=== PATIENT | female | born 1950 | race Caucasian/White ===

== ENCOUNTER 2023-11-10 04:57 | Emergency (ER) | payer MEDICARE, MEDICAID ==
[~2023-11-10] VITALS: Ht 162.6 cm; Wt 88.2 kg
[2023-11-10 05:37] VITALS: TEMP 97.7
--- NOTE | 2023-11-10 05:44 | NUR ---
MD RIDER CANCELLED EKG
[2023-11-10] MEDS: morphine 4 MG/ML inj SYRINge IV ONE (05:48)
[2023-11-10] MEDS: cyclobenzaprine 10mg tablet PO ONE (05:48)
[2023-11-10 05:50] LABS: BASOPHILS # (AUTO) 0.1 X10'3 (0-0.2); BASOPHILS % (AUTO) 0.6 % (0-1); EOSINOPHILS # (AUTO) 0.3 X10'3 (0-0.9); EOSINOPHILS % (AUTO) 2.2 % (0-6); HEMATOCRIT 35.7 % (35.0-45.0); HEMOGLOBIN 11.2 g/dl (12.0-16.0); LYMPHOCYTES # (AUTO) 3.5 X10'3 (1.1-4.8); LYMPHOCYTES % (AUTO) 30.6 % (21-51); MEAN CORPUSCULAR HEMOGLOBIN 19.2 PG (27.0-31.0); MEAN CORPUSCULAR HGB CONC 31.5 g/dL (33.0-36.5); MEAN CORPUSCULAR VOLUME 60.7 FL (78-98); MEAN PLATELET VOLUME 8.5 FL (7.4-10.4); MONOCYTES # (AUTO) 0.5 X10'3 (0-0.9); MONOCYTES % (AUTO) 4.5 % (2-12); NEUTROPHILS # (AUTO) 7.1 X10'3 (1.8-7.7); NEUTROPHILS % (AUTO) 62.1 % (42-75); PLATELET COUNT 348 X10'3 (140-440); RED BLOOD COUNT 5.87 X10'6 (4.20-5.60); RED CELL DISTRIBUTION WIDTH 15.8 % (11.5-14.5); WHITE BLOOD COUNT 11.5 X10'3 (4.5-11.0)
[2023-11-10] MEDS: losartan 50mg tablet PO SCH (05:51)
[2023-11-10 05:57] LABS: BILIRUBIN,URINE NEGATIVE (Neg); CLARITY,URINE CLEAR (Clear); COLOR,URINE YELLOW (Yellow); GLUCOSE, URINE NEGATIVE (Neg); KETONES,URINE NEGATIVE (Neg); LEUKOCYTE ESTERASE ,URINE NEGATIVE (Neg); NITRITES, URINE NEGATIVE (Neg); OCCULT BLOOD,URINE NEGATIVE (Neg); PROTEIN,URINE NEGATIVE (Neg); UROBILINOGEN,URINE 0.2 E.U/dL (0.2-1.0)
[2023-11-10 05:58] LABS: UA COLLECTION TYPE NON-SPECIFIED
[2023-11-10] MEDS ORDERED: HYDR-3965 PO (06:12)
[2023-11-10] MEDS ORDERED: CYCL-1 PO ×2 (06:12→09:05)
[2023-11-10 06:16] LABS: ALANINE AMINOTRANSFERASE 30 U/L (12-78); ALBUMIN 3.8 G/DL (3.4-5.0); ALBUMIN/GLOBULIN RATIO 0.9 (1.1-1.5); ALKALINE PHOSPHATASE 142 IU/L (46-116); AMYLASE 36 U/L (25-115); ANION GAP 14 (8-16); ASPARTATE AMINO TRANSFERASE 29 U/L (10-37); BILIRUBIN,TOTAL 1.2 MG/DL (0.1-1.0); BLOOD UREA NITROGEN 32 MG/DL (7-18); BUN/CREATININE RATIO 21.5 (10.0-20.0); CALCIUM 9.9 MG/DL (8.5-10.1); CHLORIDE 103 MMOL/L (99-107); CREATININE 1.49 MG/DL (0.40-0.90); GLUCOSE 208 MG/DL (70-104); LIPASE 42 U/L (16-77); POTASSIUM 4.3 MMOL/L (3.5-5.1); SODIUM 142 MMOL/L (135-145); TOTAL PROTEIN 7.9 G/DL (6.4-8.2); eCRCL 29 ML/MIN; eGFR 34 ML/MIN
--- NOTE | 2023-11-10 06:56 | NUR ---
CALLED LAB TO ADD THE TROPONIN ONTO THE FIRST TEST
[2023-11-10] MEDS ORDERED: EVOL140P3 SQ (07:07)
[2023-11-10] MEDS ORDERED: BUSP10TA3 PO (07:07)
[2023-11-10] MEDS ORDERED: LANTUS SQ (07:07)
[2023-11-10] MEDS ORDERED: GABA-530 (07:07)
[2023-11-10] MEDS ORDERED: DULA0.75 SQ (07:07)
[2023-11-10] MEDS ORDERED: SERT-434 PO (07:07)
[2023-11-10] MEDS ORDERED: LOSA50TA64 PO (07:07)
[2023-11-10] MEDS ORDERED: MELO-100 PO (07:07)
[2023-11-10] MEDS ORDERED: CETI10TA14 PO (07:07)
[2023-11-10] MEDS ORDERED: ROSU10TA72 (07:07)
[2023-11-10] MEDS ORDERED: VITA-268 PO (07:14)
[2023-11-10] MEDS ORDERED: CHOL50002 PO (07:14)
[2023-11-10] MEDS ORDERED: ASCO-349 PO (07:14)
[2023-11-10] MEDS ORDERED: UBID200C18 PO (07:14)
[2023-11-10] MEDS ORDERED: ASPI81TA52 PO (07:14)
[2023-11-10] MEDS ORDERED: LACT1CAP75 PO (07:14)
[2023-11-10 07:22] LABS: ANISOCYTOSIS 1+; ELLIPTOCYTES 1+; HYPOCHROMASIA 1+; MICROCYTOSIS 2+; PLATELET ESTIMATE NORMAL; POLYCHROMASIA FEW; TEAR DROP CELLS FEW
[2023-11-10] MEDS ORDERED: ONDA-243 PO (09:05)
[2023-11-10] MEDS ORDERED: PER5325T PO (09:05)
[2023-11-10 09:29] VITALS: BP 222/87; PULSE 69; RESP 18; O2SAT 99
== END 2023-11-10 09:28 | disposition home or self-care (01) ==
LOC: ER 04:59
DX: M62.830 Muscle spasm of back (principal); Z91.018 Allergy to other foods
CPT/HCPCS: 36415; 80053; 81003; 82150; 83690; 84484; 85008; 85025; 93005; 96374; 99285; J2270